=== PATIENT | male | born 1970 | race Caucasian/White ===

== ENCOUNTER 2021-08-25 14:23 | Emergency (ER) | payer SELFPAY ==
[2021-08-25 14:36] VITALS: BP 121/77; PULSE 78; RESP 15; TEMP 36.7; O2SAT 97
--- NOTE | 2021-08-25 14:50 | ED_ITS ---
HPI - General Adult General: Chief complaint: General Medical Stated complaint: Swelling in hands and ankles, Aching Time Seen by Provider: 08/25/21 14:49 History of Present Illness: Patient is a 51-year-old male with a history of hypertension presents the emergency room with worsening hand swelling x3 weeks. Patient is currently on arthritislike 12.5 mg of lisinopril 20 mg for elevated blood pressure. Patient tells me that water pill has not been worked for his hand swelling. Patient reports minimal ankle swelling bilaterally. Patient also reports fatigue for the last 3 weeks. Denies any exertional chest pain, shortness breath palpitation or lightheadedness in that time. Patient denies any abdominal complaints, nausea/vomiting fever/chills, diarrhea melena/hematochezia, or complaints Onset: 3 weeks ago Duration:3 weeks Location:home Severity:moderate Associated symptoms: Deny chest pain, dyspnea, nausea, rash, palpitations or vomiting Review of Systems Const: Denies: fever(s) or chills Eyes: Denies: change in vision ENMT: Denies: mouth pain Card: Denies: chest pain or palpitations Resp: Denies: dyspnea or non-productive cough GI: Denies: abdominal pain, nausea, vomiting or diarrhea : Denies: dysuria Musc: Reports: other (+hands swelling b/l); Denies: extremity pain Skin/Breast: Denies: rash or new lesions Neuro: Denies: weakness in extremities Psych: Reports: other (Normal mood) Home/Lymph: Denies: easy bruising PFS ED PFSH: Medical History Hypertension Social History Smoking and tobacco status: former smoker Alcohol intake: never Substance/Drug Use: current Other substance/drug use details: +marijuana Physical Exam Const: COMMON NORMALS: alert HENMT: COMMON NORMALS: atraumatic HEAD & SCALP: atraumatic MOUTH: moist mucous membranes not abnormal Eye: COMMON NORMALS: EOMs intact bilaterally and conjunctivae normal CONJUNCTIVA: Yes conjunctivae normal Neck/C-Spine: COMMON NORMALS: full ROM and supple Resp: COMMON NORMALS: normal respiratory effort and clear to auscultation bilaterally AUSCULTATION: clear to auscultation bilaterally Cardio: COMMON NORMALS: regular rate RATE: regular rate GI: COMMON NORMALS: Soft to palpation and non-tender PALPATION: Yes Soft to palpation Extremity: COMMON NORMALS: full ROM Neuro: SENSORIUM/ORIENTATION: Yes alert MOTOR EXAM: No Abnormal motor strength present and Other motor observations present (no focal motor deficits) Psych: COMMON NORMALS: speech normal SPEECH: Yes normal speech MOOD & AFFECT: Yes euthymic mood Course Vital Signs: Vital signs: Vital Signs Temperature 98.0 F 08/25/21 14:36 Pulse Rate 78 08/25/21 14:36 Respiratory Rate 15 08/25/21 14:36 Blood Pressure 121/77 08/25/21 14:36 Pulse Oximetry 97 08/25/21 14:36 [facility] - General Adult Medical Decision Making 51-year-old male with a history of hypertension presents emergency room for left concerns of persistent hand swelling. Exam, patient has 1+ edema of the upper extremities in the hands. Patient has no lower extremity edema. Lungs appear to be clear bilaterally. XR chest clear. proBNP does not appear to be elevated. Troponin/EKG not consistent with ischemic cardiac disease. Rx: HTCZ 25mg daily instead of 12.5mg daily Disposition: Discharge. Patient counseled regarding diagnostic impression, treatment plan. Patient given ED strict return precautions to return for continuation, worsening, or development of new symptoms. Instructed to f/u w/ PCP regarding symptoms today. Patient verbalized understanding. Lab Data : 08/25/21 14:50 08/25/21 14:50 Radiology Impressions Chest X-Ray 08/25/21 15:01 IMPRESSION: No acute findings. Laboratory Results WBC 8.0 10^3/uL (4.0-10.0) 08/25/21 14:50 RBC 5.04 10^6/uL (4.1-5.3) 08/25/21 14:50 Hgb 16.1 g/dL (11.7-16.6) 08/25/21 14:50 Hct 45.1 % (42.0-52.0) 08/25/21 14:50 MCV 89.5 fl (80-94) 08/25/21 14:50 MCH 31.9 pg (28.0-34.0) 08/25/21 14:50 MCHC 35.7 g/dL (30.0-36.0) 08/25/21 14:50 RDW 11.9 % (12.1-15.1) L 08/25/21 14:50 Plt Count 398 10^3/cmm (130-400) 08/25/21 14:50 MPV 9.4 fL (7.4-10.4) 08/25/21 14:50 Neut % (Auto) 62.8 % 08/25/21 14:50 Lymph % (Auto) 21.7 % 08/25/21 14:50 Prentiss % (Auto) 13.3 % 08/25/21 14:50 Eos % (Auto) 1.3 % 08/25/21 14:50 Baso % (Auto) 0.5 % 08/25/21 14:50 Neut # (Auto) 5.01 10^3/uL (1.8-7.7) 08/25/21 14:50 Lymph # (Auto) 1.7 10^3/uL (0.8-4.8) 08/25/21 14:50 Prentiss # (Auto) 1.1 10^3/uL (0.2-0.9) H 08/25/21 14:50 Eos # (Auto) 0.1 10^3/uL (0.0-0.8) 08/25/21 14:50 Baso # (Auto) 0.0 10^3/uL (0.0-0.1) 08/25/21 14:50 Nucleated RBC % (auto) 0 % 08/25/21 14:50 Nucleated RBCs # 0.0 /100WBC 08/25/21 14:50 Sodium 134 mmol/L (136-145) L 08/25/21 14:50 Potassium 4.3 mmol/L (3.5-5.1) 08/25/21 14:50 Chloride 99 mmol/L (98-107) 08/25/21 14:50 Carbon Dioxide 24 mmol/L (22-29) 08/25/21 14:50 Anion Gap 15.3 (5-19) 08/25/21 14:50 BUN 9 mg/dL (6-20) 08/25/21 14:50 Creatinine 0.7 mg/dL (0.7-1.2) 08/25/21 14:50 GFR Calculation 118.0 mL/min (90-130) 08/25/21 14:50 Glucose 89 mg/dL (65-115) 08/25/21 14:50 Calculated Osmolality 276 mOsm/kg (285-295) L 08/25/21 14:50 Calcium 9.3 mg/dL (8.5-10.5) 08/25/21 14:50 Troponin T Baseline 8 ng/L (0-15) 08/25/21 14:50 NT-Pro-B Natriuret Pep 7 pg/mL (0-125) 08/25/21 14:50 Imaging Data Other Imaging: Radiologist's impression: [employer] [address] XRay Report Signed Patient: Phan Cedeño Jr Unit #: [id number] : 1970 Age/Sex: 51 / M ADM Date: 08/25/21 Loc: ER Room/Bed: Attending Dr: Ordering Provider/Ordering MD: Kyle Willard MD Date of Service: 08/25/21 Procedure(s): XR chest 1V portable [id number] Accession Number(s): [id number] Report Number: [id number] PROCEDURE INFORMATION: Exam: XR Chest Exam date and time: 08/25/2021 3:12 PM Age: 51 years old Clinical indication: Shortness of breath and tachypnea; Additional info: Fatigue TECHNIQUE: Imaging protocol: XR of the chest. Views: 1 view. COMPARISON: No relevant prior studies available. FINDINGS: Lungs: No consolidation. Pleural spaces: Unremarkable. No pleural effusion. No pneumothorax. Heart/Mediastinum: No cardiomegaly. Bones/joints: No acute findings.? XR/XR chest 1V portable [id number] IMPRESSION: No acute findings. ? Dictated By: Shu Shaikh MD Signed By: Shu Shaikh MD Signed Date/Time: 08/25/21 1532 DD/ 11 Discharge Plan Discharge Patient Disposition: Home Clinical Impression: Bilateral hand swelling Condition: Stable Prescriptions: New hydrochlorothiazide 25 mg tablet 25 mg PO DAILY 15 Days Qty: 15 0RF Discharge Orders: Discharge ED (Routine); Ordered 08/25/21 Ordered By: Kyle Willard Discharge Diet: Advance as tolerated Discharge Activity: Increase activity as tolerated Patient Instructions: Edema (ED), Opioid Safety Activity Restrictions/Additional Instructions: Come back to the emergency room if you have any chest pain, fever or chills, worsening shortness of breath, worsening exertional lightheadedness, or any new or concerning complaints. Coding Level of Care Code ED [employer] for Chg Fwd Exam Comprehensive
--- NOTE | 2021-08-25 15:01 | XRR_ITS ---
PROCEDURE INFORMATION: Exam: XR Chest Exam date and time: 08/25/2021 3:12 PM Age: 51 years old Clinical indication: Shortness of breath and tachypnea; Additional info: Fatigue TECHNIQUE: Imaging protocol: XR of the chest. Views: 1 view. COMPARISON: No relevant prior studies available. FINDINGS: Lungs: No consolidation. Pleural spaces: Unremarkable. No pleural effusion. No pneumothorax. Heart/Mediastinum: No cardiomegaly. Bones/joints: No acute findings. XR/XR chest 1V portable [id number] IMPRESSION: No acute findings.
--- NOTE | 2021-08-25 15:01 | ECG_ITS ---
[facility] Test Date: 2021-08-25 Pat Name: Phan Cedeño Jr Department: Room: Gender: Male Certified Ophthalmic Surgical Assistant: : 1970 Requested By: Kyle Willard Order Number: [id number] Dasha MD: Chago Koch M.D. Measurements Intervals [place] Rate: 69 P: 26 MI: 190 QRS: 19 QRSD: 94 T: 14 QT: 372 QTc: 399 Interpretive Statements SINUS RHYTHM No previous ECG available for comparison Electronically Signed On 08-25-2021 19:40:38 CDT by Chago Koch M.D. [id number]
[2021-08-25 15:07] LABS: Basophils % 0.5 %; Eosinophils # 0.1 10^3/uL (0.0-0.8); Eosinophils % 1.3 %; Hematocrit 45.1 % (42.0-52.0); Hemoglobin 16.1 g/dL (11.7-16.6); Lymphocytes # 1.7 10^3/uL (0.8-4.8); Lymphocytes % 21.7 %; Mean Corpuscular HGB Conc 35.7 g/dL (30.0-36.0); Mean Corpuscular Hemoglobin 31.9 pg (28.0-34.0); Mean Corpuscular Volume 89.5 fl (80-94); Mean Platelet Volume 9.4 fL (7.4-10.4); Monocytes # 1.1 10^3/uL (0.2-0.9); Monocytes % 13.3 %; Neutrophils # 5.01 10^3/uL (1.8-7.7); Neutrophils % 62.8 %; Nucleated Red Blood Cells % 0 %; Platelet Count 398 10^3/cmm (130-400); Red Blood Count 5.04 10^6/uL (4.1-5.3); Red Cell Distribution Width 11.9 % (12.1-15.1)
[2021-08-25 15:33] LABS: Troponin(5th) Baseline 8 ng/L (0-15)
[2021-08-25 15:39] LABS: Anion Gap 15.3 (5-19); Blood Urea Nitrogen 9 mg/dL (6-20); Calcium 9.3 mg/dL (8.5-10.5); Carbon Dioxide 24 mmol/L (22-29); Chloride 99 mmol/L (98-107); Glucose 89 mg/dL (65-115); NT Pro B Type Natriuretic Pept 7 pg/mL (0-125); Osmolality Calculated 276 mOsm/kg (285-295); Potassium 4.3 mmol/L (3.5-5.1); Sodium 134 mmol/L (136-145)
[2021-08-25 15:57] VITALS: BP 115/61; PULSE 65; RESP 18; TEMP 36.6; O2SAT 96
== END 2021-08-25 16:06 | disposition home or self-care (01) ==
PROVIDERS: Emergency Provider Emergency Medicine
DX: M79.89 Other specified soft tissue disorders (principal); I10 Essential (primary) hypertension; R60.9 Edema, unspecified
CPT/HCPCS: 71045; 80048; 83880; 84484; 85025; 93005; 99283

== ENCOUNTER → 2022-11-23 09:05 | Outpatient (BNVA) | payer MEDICAID, SELFPAY | PROVIDERS: PCP Registered Nurse; Visit Provider Internal Medicine Rheumatology | DX: Z79.899 Other long term (current) drug therapy (principal); M19.90 Unspecified osteoarthritis, unspecified site; Z11.1 Encounter for screening for respiratory tuberculosis; R76.8 Other specified abnormal immunological findings in serum; M05.79 Rheumatoid arthritis with rheumatoid factor of multiple sites without organ or systems involvement; B19.20 Unspecified viral hepatitis C without hepatic coma; Z71.85 Encounter for immunization safety counseling | CPT/HCPCS: 36415; 73130; 73630; 82565; 85025; 86160; 86162; 86235; 86255; 86376; 86480; 86800; 99204 ==